=== PATIENT | male | born 1980 | race Two or more races ===

== ENCOUNTER 2024-05-18 09:50 | Outpatient (RCR) | payer MEDICAID, SELFPAY ==
--- NOTE | 2024-05-18 10:00 | XR_ITS ---
Examination: YORDY, hepatobiliary radioisotope scan Gallbladder ejection fraction study. Date and time of exam: May 18, 2024 0953 hours INDICATIONS: Heartburn acid reflux Sharp epigastric pain beginning one year ago Technique: 5.8 mCi of 99M Hepatolite administered. Serial imaging then obtained from immediate through 60 minutes. 1.6 mcg selective catheter Kinevac administered for gallbladder ejection fraction study. Findings: Radioisotope activity within the liver is reasonably homogenous. Gallbladder, common bile duct small bowel activity noted Impression: Gallbladder activity Abnormal gallbladder ejection fraction, 4%, normal greater than 35%
== END 2024-05-23 23:59 | disposition home or self-care (01) ==
LOC: SNUC 09:50
PROVIDERS: PCP Internal Medicine Gastroenterology; Referring Provider Internal Medicine Gastroenterology; Visit Provider Internal Medicine Gastroenterology
DX: R93.2 Abnormal findings on diagnostic imaging of liver and biliary tract (principal)
CPT/HCPCS: 78227; A9537; J2805